=== PATIENT | female | born 1980 | race Caucasian/White ===

== ENCOUNTER 2017-04-22 14:34 | Emergency (ER) | payer OTHER ==
--- NOTE | 2017-04-22 15:04 | ER Document Report ---
ED Psych Disorder / Suicide - General Chief Complaint: Depression Stated Complaint: PSYCH PROBLEM Time Seen by Provider: 04/22/17 14:58 Notes: The patient is a 37-year-old female, past medical history anxiety, depression, benzos, presents with increased feelings of anxiety. She is approaching the one -year anniversary of her father's . Since she no longer has insurance, she is buying benzos off the street and she last used last night (0.5 mg Klonopin). She is having feelings of extreme anxiety, depression and hopelessness. She was at [facility], had outpatient labs done earlier today and was sent to [facility] for further evaluation. [facility] sent her to the ER for further evaluation. Patient denies any suicidal thoughts, alcohol use, homicidal thoughts, hallucinations, chest pain, shortness of breath, nausea, vomiting or back pain. TRAVEL OUTSIDE OF THE [place] IN LAST 30 DAYS: No - Related Data Allergies/Adverse Reactions: Penicillins Allergy (Severe, Verified 04/22/17 14:50) Facial swelling shellfish derived Allergy (Verified 04/22/17 14:51) Past Medical History - General Information source: Patient - Social History Smoking Status: Current Every Day Smoker Family History: Reviewed & Not Pertinent Patient has suicidal ideation: No Patient has homicidal ideation: No Neurological Medical History: Reports: Hx Migraine. Denies: Hx Seizures Renal/ Medical History: Reports: Hx Kidney Stones. Denies: Hx Peritoneal Dialysis Skin Medical History: Denies Hx MRSA Psychiatric Medical History: Reports: Hx Attention Deficit Hyperactivity Disorder, Hx Depression Past Surgical History: Reports: Hx Gynecologic Surgery - D&C, Hx Tubal Ligation. Denies: Hx Pacemaker - Immunizations Hx Diphtheria, Pertussis, Tetanus Vaccination: Yes Review of Systems - Review of Systems Notes: REVIEW OF SYSTEMS: CONSTITUTIONAL: -fevers, -chills EENT: -eye pain, -difficulty swallowing, -nasal congestion CARDIOVASCULAR:-chest pain, -syncope. RESPIRATORY: -cough, -SOB GASTROINTESTINAL: -abdominal pain, - nausea, -vomiting, -diarrhea GENITOURINARY: -dysuria, -hematuria MUSCULOSKELETAL: -back pain, -neck pain SKIN: -rash or skin lesions. HEMATOLOGIC: -easy bruising or bleeding. LYMPHATIC: -swollen, enlarged glands. NEUROLOGICAL: -altered mental status or loss of consciousness, -headache, - neurologic symptoms PSYCHIATRIC: +anxiety, +depression, +hopelessness ALL OTHER SYSTEMS REVIEWED AND NEGATIVE. Physical Exam - Vital signs Vitals: Temp Pulse Resp BP Pulse Ox 99.1 F 126 H 18 129/86 H 97 04/22/17 14:51 04/22/17 14:51 04/22/17 14:51 04/22/17 14:51 04/22/17 14:51 - Notes Notes: PHYSICAL EXAMINATION: GENERAL: Very anxious. Tearful. HEAD: Atraumatic, normocephalic. EYES: Pupils equal round and reactive to light, extraocular movements intact, sclera anicteric, conjunctiva are normal. ENT: nares patent, oropharynx clear without exudates. Moist mucous membranes. NECK: Normal range of motion, supple without lymphadenopathy LUNGS: Breath sounds clear to auscultation bilaterally and equal. No wheezes rales or rhonchi. HEART: Tachycardic, regular rhythm ABDOMEN: Soft, nontender, normoactive bowel sounds. No guarding, no rebound. No masses appreciated. EXTREMITIES: Normal range of motion, no pitting or edema. No cyanosis. NEUROLOGICAL: Cranial nerves grossly intact. Normal speech, normal gait. Normal sensory and motor exams. PSYCH: Anxious SKIN: Warm, Dry, normal turgor, no rashes or lesions noted. Course - Re-evaluation Re-evalutation: Patient very anxious in triage. Her last Klonopin use was last night. No suicidal thoughts, but patient wants to get voluntary help. She does not appear to be withdrawing at this time, since she says that she is not a chronic abuser of benzos. Patient medically cleared and will have mental health evaluate her for further evaluation and treatment. 04/22/17 16:45 Pt seen by Mental Health. Recommending Visteril for anxiety and have her f/u at [facility]. Pt is not suicidal. Tachycardia resolved after anxiety controlled. Will D/C home with strict return precautions. - Vital Signs Vital signs: Temp Pulse Resp BP Pulse Ox 98.5 F 109 H 18 145/87 H 100 04/22/17 16:44 04/22/17 16:44 04/22/17 16:44 04/22/17 16:44 04/22/17 16:44 - EKG Interpretation by [facility] EKG shows normal: Sinus rhythm, Dumas, Intervals, QRS Complexes, ST-T Waves Rate: Tachycardia Discharge - Discharge Clinical Impression: Anxiety Condition: Stable Disposition: HOME, SELF-CARE Additional Instructions: Anxiety The physician feels that some of your health problems are being caused by anxiety. Anxiety affects your health in many ways. Anxiety alone can cause palpitations, sweats, chest pains, abdominal pains, shortness of breath, and headaches. It contributes to ulcer disease, high blood pressure, irritable bowel syndrome, and has been shown to cause flare-ups of many other diseases. Anxiety is not a simple disorder to treat. If the anxiety is due to recent life stresses, you may simply need time to "work through" the changes. If the anxiety is due to an underlying unhappiness with yourself or due to psychiatric disturbance, professional help will be needed. Your physician can refer you for further help if needed. Anti-anxiety medication is occasionally given if the stress is acute or if you are having trouble sleeping. Chronic or frequent use of these medications is not a good idea because the body becomes reliant on it, preventing you from dealing with life's normal stresses. Depression Your evaluation reveals that you have mental depression. While symptoms may be vague, they often include disturbance of sleep, fatigue, loss of appetite , and general loss of interest in life. While depression may be a side effect of drugs, or a reaction to a major change in your life, many cases have no known cause. If depression is acute, and related to a major loss in your life, you can expect it to clear completely with time. If you have been depressed a long time , are prone to repeated bouts of depression or low mood, or have been thinking of suicide, get help. Depression can be treated with anti-depressant medication and counselling. Long-term depression will often take a few weeks to clear, even with appropriate medication. Follow-up care is important. Contact your physician, the hospital emergency center, crisis line, or your counsellor if you are losing control or having self-destructive thoughts. Follow-up with [facility] for your outpatient treatment. You have been provided a list of resources as well as a copy of your negative toxicology test. Prescriptions: Hydroxyzine Pamoate [Vistaril 25 mg Capsule] 25 mg PO DAILY #7 capsule Referrals: [facility] [Provider Group] - Follow up as needed
[2017-04-22] MEDS ORDERED: BUSPIRONE HCL 10 MG TABLET PO ONE (15:27)
[2017-04-22] MEDS ORDERED: NICOTINE 21 MG/24 HR PATCH.TD24 TD ONE (16:03)
[2017-04-22 16:10] LABS: URINE BARBITURATES SCREEN NEGATIVE; URINE METHADONE SCREEN NEGATIVE; URINE OPIATES LOW NEGATIVE; URINE PHENCYCLIDINE SCREEN NEGATIVE
[2017-04-22 16:52] VITALS: BP 145/87
--- NOTE | 2017-04-22 23:40 | EKG REPORT ---
SEVERITY:- BORDERLINE ECG - SINUS TACHYCARDIA INFERIOR Q WAVES, PROBABLY NORMAL VARIATION : Confirmed by: Ernesto Khoury 22-Apr-2017 23:39:22
== END 2017-04-22 16:47 | disposition home or self-care (01) ==
LOC: ER 14:34
DX: F32.9 Major depressive disorder, single episode, unspecified (principal); F41.9 Anxiety disorder, unspecified; F17.200 Nicotine dependence, unspecified, uncomplicated; Z87.442 Personal history of urinary calculi; Z98.51 Tubal ligation status; Z88.0 Allergy status to penicillin; Z91.013 Allergy to seafood
CPT/HCPCS: 80307; 93005; 93010; 99284

== ENCOUNTER → 2017-04-22 | Outpatient (CLI) | payer SELFPAY ==
[2017-04-22 14:28] LABS: ABSOLUTE EOSINOPHILS # (AUTO) 0.1 10^3/uL (0.0-0.6); ABSOLUTE LYMPHOCYTES (AUTO) 2.3 10^3/uL (0.5-4.7); ABSOLUTE MONOCYTES (AUTO) 0.4 10^3/uL (0.1-1.4); ABSOLUTE NEUT (AUTO) 4.7 10^3/uL (1.7-8.2); BASOPHILS % (AUTO) 0.4 % (0-2); EOSINOPHILS % (AUTO) 1.6 % (0-6); HEMATOCRIT 43.6 % (36.0-47.0); HEMOGLOBIN 14.8 g/dL (12.0-15.5); HGB HCT DIFFERENCE 0.8; LYMPHOCYTES % (AUTO) 30.7 % (13-45); MEAN CORPUSCULAR HEMOGLOBIN 33.3 pg (27.0-33.4); MEAN CORPUSCULAR HGB CONC 33.9 g/dL (32.0-36.0); MEAN CORPUSCULAR VOLUME 98 fl (80-97); MONOCYTES % (AUTO) 5.1 % (3-13); RED BLOOD COUNT 4.44 10^6/uL (3.72-5.28); RED CELL DISTRIBUTION WIDTH 13.8 % (11.5-14.0); SEGMENTED NEUTROPHILS % (AUTO) 62.2 % (42-78); WHITE BLOOD COUNT 7.5 10^3/uL (4.0-10.5)
[2017-04-22 14:33] LABS: APPEARANCE,URINE SLIGHTLY-CLOUDY; BILIRUBIN,URINE NEGATIVE (NEGATIVE); GLUCOSE, URINE NEGATIVE (NEGATIVE); KETONES,URINE NEGATIVE (NEGATIVE); LEUKOCYTE ESTERASE,URINE NEGATIVE (NEGATIVE); NITRITE,URINE NEGATIVE (NEGATIVE); PROTEIN,URINE NEGATIVE (NEGATIVE); URINE SPECIFIC GRAVITY 1.004; UROBILINOGEN,URINE NEGATIVE mg/dL (<2.0)
[2017-04-22 14:49] LABS: ALANINE AMINOTRANSFERASE 84 U/L (9-52); ALBUMIN 4.5 g/dL (3.5-5.0); ALKALINE PHOSPHATASE 72 U/L (38-126); ANION GAP 14 (5-19); ASPARTATE AMINO TRANSFERASE 52 U/L (14-36); BILIRUBIN,DIRECT 0.3 mg/dL (0.0-0.4); BILIRUBIN,TOTAL 0.4 mg/dL (0.2-1.3); BLOOD UREA NITROGEN 11 mg/dL (7-20); CALCIUM 9.9 mg/dL (8.4-10.2); CARBON DIOXIDE 25 mmol/L (22-30); CHLORIDE 102 mmol/L (98-107); CREATININE RESULT 0.76 mg/dL (0.52-1.25); GLUCOSE 93 mg/dL (75-110); POTASSIUM 4.4 mmol/L (3.6-5.0); SODIUM 140.9 mmol/L (137-145); TOTAL PROTEIN 8.2 g/dL (6.3-8.2)
[2017-04-22 15:09] LABS: FREE T3 3.65 pg/mL (2.77-5.27)
[2017-04-22 15:22] LABS: THYROID STIMULATING HORMONE 0.98 uIU/mL (0.47-4.68)
[2017-04-22 15:32] LABS: ADD HIVPANEL? NO; HIV (1 AND 2) ANTIBODY NEGATIVE (NEGATIVE)
[2017-04-24 05:40] LABS: HEPATITIS C VIRUS AB <0.1 s/co ratio (0.0-0.9); PROLACTIN 12.2 ng/mL (4.8-23.3)
== END ==
LOC: OD 13:31
PROVIDERS: ATTEND Obstetrics & Gynecology Gynecology
DX: F33.2 Major depressive disorder, recurrent severe without psychotic features (principal)
CPT/HCPCS: 36415; 80053; 81001; 83036; 84146; 84439; 84443; 84481; 85025; 86592; 86701; 86803; 86804; 87340

== ENCOUNTER 2017-12-30 10:28 | Observation (INO) | payer OTHER ==
--- NOTE | 2017-12-30 11:20 | ER Document Report ---
HPI - HPI Pain Level: 4 - REPRODUCTIVE Reproductive: DENIES: : Past Medical History - Social History Family History: Reviewed & Not Pertinent Neurological Medical History: Reports: Hx Migraine. Denies: Hx Seizures Renal/ Medical History: Reports: Hx Kidney Stones. Denies: Hx Peritoneal Dialysis Skin Medical History: Denies Hx MRSA Psychiatric Medical History: Reports: Hx Attention Deficit Hyperactivity Disorder, Hx Depression Past Surgical History: Reports: Hx Gynecologic Surgery - D&C, Hx Tubal Ligation. Denies: Hx Pacemaker - Immunizations Hx Diphtheria, Pertussis, Tetanus Vaccination: Yes Vertical Provider Document - INFECTION CONTROL TRAVEL OUTSIDE OF THE [place] IN LAST 30 DAYS: No - RESPIRATORY O2 Sat by Pulse Oximetry: 97 Course - Re-evaluation Re-evalutation: 12/30/17 12:57 Chest x-ray shows small right apical pneumothorax. - Vital Signs Vital signs: Temp Pulse Resp BP Pulse Ox 99.1 F 109 H 18 128/71 H 97 12/30/17 10:34 12/30/17 10:34 12/30/17 10:34 12/30/17 10:34 12/30/17 10:34 Discharge - Discharge Referrals: EDDA BELTRAN MD [Primary Care Provider] - Follow up as needed
[2017-12-30] MEDS ORDERED: IBUPROFEN 800 MG TABLET PO ONE (11:26)
[2017-12-30] MEDS ORDERED: OXYCODONE-ACETAMINOPHEN 5-325 MG TABLET PO ONE ×2 (11:26→15:35)
[2017-12-30] MEDS ORDERED: ONDANSETRON 4 MG TAB.RAPDIS PO ONE (11:26)
[2017-12-30] MEDS ORDERED: LIDOCAINE 1% INJ-PF (10 MG/ML) 30 ML SDV INJ ONE (11:28)
[2017-12-30] MEDS ORDERED: DIPH/PERTUSS(ACELL)/TETANUS VAC/PF 0.5 ML SYR (>=10YO) IM ONE (11:33)
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
[2017-12-30] MEDS ORDERED: ERTAPENEM SODIUM INJ 1 GM VIAL IV ONE (13:12)
[2017-12-30] MEDS ORDERED: NICOTINE 21 MG/24 HR PATCH.TD24 TD ONE (13:21)
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
[2017-12-30] MEDS ORDERED: CLINDAMYCIN 600 MG/D5W RTU 600 MG/50 ML RTUPB IV ONE (14:00)
[2017-12-30 14:06] LABS: ABSOLUTE EOSINOPHILS # (AUTO) 0.5 10^3/uL (0.0-0.6); ABSOLUTE LYMPHOCYTES (AUTO) 2.8 10^3/uL (0.5-4.7); ABSOLUTE MONOCYTES (AUTO) 0.5 10^3/uL (0.1-1.4); ABSOLUTE NEUT (AUTO) 6.5 10^3/uL (1.7-8.2); BASOPHILS % (AUTO) 0.4 % (0-2); EOSINOPHILS % (AUTO) 4.9 % (0-6); HEMATOCRIT 38.6 % (36.0-47.0); HEMOGLOBIN 13.2 g/dL (12.0-15.5); LYMPHOCYTES % (AUTO) 27.4 % (13-45); MEAN CORPUSCULAR HEMOGLOBIN 33.8 pg (27.0-33.4); MEAN CORPUSCULAR HGB CONC 34.2 g/dL (32.0-36.0); MEAN CORPUSCULAR VOLUME 99 fl (80-97); MONOCYTES % (AUTO) 4.9 % (3-13); PLATELET COUNT 256 10^3/uL (150-450); RED BLOOD COUNT 3.91 10^6/uL (3.72-5.28); RED CELL DISTRIBUTION WIDTH 13.7 % (11.5-14.0); SEGMENTED NEUTROPHILS % (AUTO) 62.4 % (42-78); TOTAL CELLS COUNTED % (AUTO) 100 %; WHITE BLOOD COUNT 10.4 10^3/uL (4.0-10.5)
[2017-12-30 14:08] LABS: ALANINE AMINOTRANSFERASE 27 U/L (9-52); ALBUMIN 4.5 g/dL (3.5-5.0); ALKALINE PHOSPHATASE 56 U/L (38-126); ANION GAP 12 (5-19); ASPARTATE AMINO TRANSFERASE 20 U/L (14-36); BILIRUBIN,DIRECT 0.2 mg/dL (0.0-0.4); BILIRUBIN,TOTAL 0.2 mg/dL (0.2-1.3); BLOOD UREA NITROGEN 9 mg/dL (7-20); CALCIUM 9.7 mg/dL (8.4-10.2); CARBON DIOXIDE 26 mmol/L (22-30); CHLORIDE 104 mmol/L (98-107); GLUCOSE 89 mg/dL (75-110); TOTAL PROTEIN 6.9 g/dL (6.3-8.2)
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
[2017-12-30] MEDS ORDERED: OXYCODONE HCL IR 5 MG TABLET PO PRN (16:55)
[2017-12-30] MEDS ORDERED: HYDROMORPHONE HCL INJ/PF 2 MG/ML AMPULE IV PRN (17:07)
[2017-12-30] MEDS ORDERED: ALPRAZOLAM 0.5 MG TABLET PO PRN (18:40)
[2017-12-30] MEDS: OXYCODONE-ACETAMINOPHEN 5-325 MG TABLET PO PRN (20:14)
[2017-12-31] MEDS: FENTANYL CITRATE INJ/PF 100 MCG/2 ML AMPUL IV PRN ×2 (00:01→04:03)
[2017-12-31 07:16] LABS: ABSOLUTE EOSINOPHILS # (AUTO) 0.4 10^3/uL (0.0-0.6); ABSOLUTE LYMPHOCYTES (AUTO) 2.2 10^3/uL (0.5-4.7); ABSOLUTE MONOCYTES (AUTO) 0.4 10^3/uL (0.1-1.4); ABSOLUTE NEUT (AUTO) 2.6 10^3/uL (1.7-8.2); BASOPHILS % (AUTO) 0.5 % (0-2); EOSINOPHILS % (AUTO) 7.4 % (0-6); HEMATOCRIT 34.5 % (36.0-47.0); HEMOGLOBIN 11.9 g/dL (12.0-15.5); LYMPHOCYTES % (AUTO) 39.4 % (13-45); MEAN CORPUSCULAR HGB CONC 34.4 g/dL (32.0-36.0); MEAN CORPUSCULAR VOLUME 99 fl (80-97); MONOCYTES % (AUTO) 7.7 % (3-13); PLATELET COUNT 210 10^3/uL (150-450); RED BLOOD COUNT 3.49 10^6/uL (3.72-5.28); RED CELL DISTRIBUTION WIDTH 13.5 % (11.5-14.0); TOTAL CELLS COUNTED % (AUTO) 100 %; WHITE BLOOD COUNT 5.7 10^3/uL (4.0-10.5)
[2017-12-31] MEDS: OXYCODONE-ACETAMINOPHEN 5-325 MG TABLET PO PRN (08:37)
--- NOTE | 2017-12-31 08:46 | RADIOLOGY REPORT (SQ) ---
EXAM DESCRIPTION: CHEST SINGLE VIEW COMPLETED DATE/TIME: 12/31/2017 8:33 am REASON FOR STUDY: pneumothorax COMPARISON: 12/30/2017. FINDINGS: Single-view chest PA image timed 0841 hours. Diminished aeration in left lower lobe, patchy airspace disease has developed. No pneumothorax appre ciated. Mild chronic subcutaneous emphysema in the right chest wall. IMPRESSION: 1. Right pneumothorax looks resolved. Persistent soft tissue gas. 2. Diminished aerati on left base, worsening volume loss or infiltrate. TECHNICAL DOCUMENTATION: JOB ID: [id number] Reading location - IP/workstation name: [email or web address]
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
[2017-12-31 11:34] VITALS: BP 137/73
[2017-12-31] MEDS ORDERED: IBUPROFEN 800 MG TABLET ONE (11:48)
[2017-12-31] MEDS ORDERED: CLINDAMYCIN 600 MG/D5W RTU 600 MG/50 ML RTUPB IV SCH (12:00)
[2017-12-31] MEDS ORDERED: CLINDAMYCIN PHOSPHATE 600 MG in DEXTROSE 5%-WATER 100 ML IV SCH (12:00)
[2017-12-31] MEDS ORDERED: IBUPROFEN 400 MG TABLET PO ONE (12:00)
== END 2017-12-31 12:11 | disposition home or self-care (01) ==
LOC: ER 10:28 → EEVIPCON 13:38 → EH 13:38 → 5 17:09
PROVIDERS: ADMIT Emergency Medicine; ATTEND Emergency Medicine
PROC: 3E0234Z Introduction of Serum, Toxoid and Vaccine into Muscle, Percutaneous Approach (ICD-10-PCS; principal; 2017-12-30)
DX: S21.4 Open wound of back wall of thorax with penetration into thoracic cavity (principal); S27.0XXA Traumatic pneumothorax, initial encounter; T79.7XXA Traumatic subcutaneous emphysema, initial encounter; X99.1XXA Assault by knife, initial encounter; F17.200 Nicotine dependence, unspecified, uncomplicated; F12.10 Cannabis abuse, uncomplicated; F41.9 Anxiety disorder, unspecified; F11.20 Opioid dependence, uncomplicated; Z88.0 Allergy status to penicillin
CPT/HCPCS: 99284; 90471; 96365; 36415; 85025 ×2; 80053; 71046; 71045; 90715; G0378 ×3; S0119; J3010; J3490; J1170

== ENCOUNTER → 2018-01-05 | Outpatient (CLI) | payer OTHER ==
--- NOTE | 2018-01-05 14:30 | RADIOLOGY REPORT (SQ) ---
EXAM DESCRIPTION: CHEST PA/LAT COMPLETED DATE/TIME: 01/05/2018 2:15 pm REASON FOR STUDY: J93.9 PNEUMOTHORAX, UNSPECIFIED COMPARISON: 12/31/2017 and 12/30/2017. EXAM PARAMETERS: NUMBER OF VIEWS: two views TECHNIQUE: Digital Frontal and Lateral radiographic views of the chest acquired. RADIATION DOSE: NA LIMITATIONS: none FINDINGS: LUNGS AND PLEURA: No opacities, masses or pneumothorax. No pleural effusion. MEDIASTINUM AND HILAR STRUCTURES: No masses or contour abnormalities. HEART AND VASCULAR STRUCTURES: Heart normal size. No evidence for failure. BONES: No acute findings. HARDWARE: None in the chest. OTHER: No other significant finding. IMPRESSION: NO SIGNIFICANT RADIOGRAPHIC FINDING IN THE CHEST. PREVIOUSLY SEEN SMALL RIGHT APICAL PN EUMOTHORAX AND SUBCUTANEOUS EMPHYSEMA ON THE RIGHT SIDE HAVE RESOLVED. TECHNICAL DOCUMENTATION: JOB ID: [id number] [employer]- All Rights Reserved Reading location - IP/workstation name: [email or web address]
== END ==
LOC: RAD 13:57
PROVIDERS: ATTEND Physician Assistant
DX: J93.9 Pneumothorax, unspecified (principal)
CPT/HCPCS: 71046

== ENCOUNTER 2018-01-10 19:45 | Emergency (ER) | payer OTHER ==
[2018-01-10] MEDS ORDERED: LORAZEPAM 1 MG TABLET PO ONE (20:07)
[2018-01-10] MEDS ORDERED: ONDANSETRON HCL INJ/PF 4 MG/2 ML SDV IV ONE (20:11)
[2018-01-10] MEDS ORDERED: DIAZEPAM INJ 10 MG/2 ML DISP.SYRIN IV ONE ×2 (20:11→21:39)
[2018-01-10] MEDS ORDERED: NORMAL SALINE 1000 ML 1,000 ML IV ONE (20:11)
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
--- NOTE | 2018-01-10 20:24 | RADIOLOGY REPORT (SQ) ---
EXAM DESCRIPTION: CHEST PA/LAT COMPLETED DATE/TIME: 01/10/2018 8:17 pm REASON FOR STUDY: cp, deon COMPARISON: Two-view chest 01/05/2018 EXAM PARAMETERS: NUMBER OF VIEWS: two views TECHNIQUE: Digital Frontal and Lateral radiographic views of the chest acquired. RADIATION DOSE: NA LIMITATIONS: none FINDINGS: LUNGS AND PLEURA: No opacities, masses or pneumothorax. No pleural effusion. MEDIASTINUM AND HILAR STRUCTURES: No masses or contour abnormalities. HEART AND VASCULAR STRUCTURES: Heart normal size. No evidence for failure. BONES: No acute findings. HARDWARE: None in the chest. OTHER: No other significant finding. IMPRESSION: NO SIGNIFICANT RADIOGRAPHIC FINDING IN THE CHEST. TECHNICAL DOCUMENTATION: JOB ID: [id number] [employer]- All Rights Reserved Reading location - IP/workstation name: [email or web address]
[2018-01-10 20:59] LABS: ABSOLUTE BASOPHILS # (AUTO) 0.1 10^3/uL (0.0-0.2); ABSOLUTE EOSINOPHILS # (AUTO) 0.5 10^3/uL (0.0-0.6); ABSOLUTE LYMPHOCYTES (AUTO) 1.9 10^3/uL (0.5-4.7); ABSOLUTE MONOCYTES (AUTO) 0.7 10^3/uL (0.1-1.4); BASOPHILS % (AUTO) 0.6 % (0-2); EOSINOPHILS % (AUTO) 4.6 % (0-6); HEMATOCRIT 39.8 % (36.0-47.0); HEMOGLOBIN 13.9 g/dL (12.0-15.5); LYMPHOCYTES % (AUTO) 18.6 % (13-45); MEAN CORPUSCULAR HEMOGLOBIN 33.9 pg (27.0-33.4); MEAN CORPUSCULAR VOLUME 97 fl (80-97); MONOCYTES % (AUTO) 7.1 % (3-13); PLATELET COUNT 367 10^3/uL (150-450); RED CELL DISTRIBUTION WIDTH 13.9 % (11.5-14.0); SEGMENTED NEUTROPHILS % (AUTO) 69.1 % (42-78); TOTAL CELLS COUNTED % (AUTO) 100 %; WHITE BLOOD COUNT 10.1 10^3/uL (4.0-10.5)
[2018-01-10 21:12] LABS: ANION GAP 17 (5-19); BLOOD UREA NITROGEN 17 mg/dL (7-20); CALCIUM 9.8 mg/dL (8.4-10.2); CARBON DIOXIDE 25 mmol/L (22-30); CHLORIDE 97 mmol/L (98-107); GLUCOSE 105 mg/dL (75-110); POTASSIUM 3.2 mmol/L (3.6-5.0); SODIUM 138.9 mmol/L (137-145)
[2018-01-10] MEDS ORDERED: ONDANSETRON ODT 4 MG TAB (6 TAB/ER DISP) PO PRN (21:35)
[2018-01-10] MEDS ORDERED: HYDROXYZINE PAMOATE 25 MG CAPSULE (4 CAP/ER DISP) PO PRN (21:35)
--- NOTE | 2018-01-10 23:49 | EKG REPORT ---
SEVERITY:- BORDERLINE ECG - SINUS RHYTHM BORDERLINE PROLONGED QT INTERVAL : Confirmed by: Jeb Phillips MD 10-Jan-2018 23:49:01
[2018-01-10 23:50] VITALS: BP 128/70
== END 2018-01-10 23:50 | disposition home or self-care (01) ==
LOC: ER 19:45
DX: F41.9 Anxiety disorder, unspecified (principal); R06.02 Shortness of breath; R06.00 Dyspnea, unspecified; F17.200 Nicotine dependence, unspecified, uncomplicated; Z87.442 Personal history of urinary calculi; Z86.14 Personal history of Methicillin resistant Staphylococcus aureus infection; Z98.51 Tubal ligation status; Z88.0 Allergy status to penicillin; Z91.013 Allergy to seafood
CPT/HCPCS: 93005; 99284; 36415; 85025; 80048; 71046; 93010; J3360; J3490; J2405; J7030

== ENCOUNTER 2019-04-03 09:00 | Emergency (ER) | payer OTHER ==
--- NOTE | 2019-04-03 10:58 | ER Document Report ---
ED Oral Problem - General Chief Complaint: Mouth Problem Stated Complaint: MOUTH PAIN Time Seen by Provider: 04/03/19 10:46 Primary Care Provider: Alejandro [facility] [Provider Group] - Follow up as needed Notes: Patient is a 37-year-old female who presents to the emergency department with a chief complaint of left dental pain. Patient states that about 5 months ago she had her bottom left tooth broken which has been infected multiple times. She states that usually she deals with the pain and minimal swelling at home. Patient states yesterday she started to have tooth pain around that area and wok e up this morning with a large amount of swelling to the left lower face. Patient denies fever. Patient denies difficulty swallowing or neck pain. Patient states the pain is primarily located where the tooth was broken off. Patient denies drainage or foul odor from the mouth. TRAVEL OUTSIDE OF THE [place] IN LAST 30 DAYS: No - Related Data Allergies/Adverse Reactions: Penicillins Allergy (Severe, Verified 04/03/19 09:01) Facial swelling shellfish derived Allergy (Verified 04/03/19 09:01) Past Medical History - General Information source: Patient - Social History Smoking Status: Current Every Day Smoker Frequency of alcohol use: None Drug Abuse: Marijuana Family History: Reviewed & Not Pertinent Patient has suicidal ideation: No Patient has homicidal ideation: No - Past Medical History Cardiac Medical History: Reports: None Pulmonary Medical History: Reports: None EENT Medical History: Reports: None Neurological Medical History: Reports: Hx Migraine. Denies: Hx Seizures Endocrine Medical History: Reports: None Renal/ Medical History: Reports: Hx Kidney Stones. Denies: Hx Peritoneal Dialysis Malignancy Medical History: Reports: None GI Medical History: Reports: None Musculoskeletal Medical History: Reports None Skin Medical History: Reports None, Denies Hx MRSA Psychiatric Medical History: Reports: Hx Attention Deficit Hyperactivity Disorder, Hx Depression Traumatic Medical History: Reports: None Infectious Medical History: Reports: None Surgical Hx: Negative Past Surgical History: Reports: Hx Gynecologic Surgery - D&C, Hx Tubal Ligation. Denies: Hx Pacemaker - Immunizations Hx Diphtheria, Pertussis, Tetanus Vaccination: Yes Review of Systems - Review of Systems Constitutional: No symptoms reported EENT: See HPI Cardiovascular: No symptoms reported Respiratory: No symptoms reported Gastrointestinal: No symptoms reported Genitourinary: No symptoms reported Female Genitourinary: No symptoms reported Musculoskeletal: No symptoms reported Skin: No symptoms reported Hematologic/Lymphatic: No symptoms reported Neurological/Psychological: No symptoms reported Physical Exam - Vital signs Vitals: Temp Pulse Resp BP Pulse Ox 98.7 F 106 H 16 123/70 98 04/03/19 09:09 04/03/19 09:09 04/03/19 09:09 04/03/19 09:09 04/03/19 09:09 Interpretation: Normal - Notes Notes: GENERAL: Well-appearing, well-nourished and in no acute distress. HEAD: Atraumatic, normocephalic. EYES: Pupils equal round and reactive to light, extraocular movements intact, sclera anicteric, conjunctiva are normal. ENT: Nares patent, oropharynx clear without exudates. Moist mucous membranes. Patient has very poor indentation with multiple broken teeth. Patient has swelling to left lower face, no palpable abscess, airway is patent, no cellulitis. NECK: Normal range of motion, supple without lymphadenopathy or JVD. LUNGS: Breath sounds clear to auscultation bilaterally and equal. No wheezes rales or rhonchi. HEART: Regular rate and rhythm without murmurs, rubs or gallops. ABDOMEN: Soft, nontender, normoactive bowel sounds. No guarding, no rebound. No masses appreciated. BACK: No cervical, thoracic, lumbar midline tenderness. No saddle anesthesia, normal distal neurovascular exam. GENITOURINARY: Deferred. EXTREMITIES: Normal range of motion, no pitting or edema. No clubbing or cyanosis. NEUROLOGICAL: Cranial nerves II through XII grossly intact. Normal speech, normal gait. PSYCH: Normal mood, normal affect. SKIN: Warm, Dry, normal turgor, no rashes or lesions noted. Course - Re-evaluation Re-evalutation: 04/03/19 Assessment patient is resting comfortably on stretcher. Patient does have left lower facial swelling. Patient is able to move her jaw and swallow without difficulty. Patient states that she has had this happen multiple times due to her broken tooth that occurred months ago. Patient states she has done well with clindamycin in the past. Informed patient the important to return if not feeling better or if the swelling gets worse. We will give her a dose of clindamycin as well as pain medication. Patient return if symptoms worsen. - Vital Signs Vital signs: Temp Pulse Resp BP Pulse Ox 98.7 F 92 16 127/75 H 98 04/03/19 11:50 04/03/19 11:50 04/03/19 11:50 04/03/19 11:50 04/03/19 11:50 Discharge - Discharge Clinical Impression: Dental infection, Facial swelling Condition: Stable Disposition: HOME, SELF-CARE Additional Instructions: Today you were seen for dental pain and left lower facial swelling. We have given your first dose of antibiotic as well as pain medication in the emergency department. Please take your antibiotic for the full 10 days. Please return to the emergency department if your symptoms have not improved or if the facial swelling gets worse, fever, difficulty swallowing or any other concerning signs or symptoms. I referred you to the [facility], call them on Friday to make a appointment. *You have been evaluated for dental pain *Take medications as prescribed *Follow up with dentist *Return to ED for worsening condition, changes, needs Dental Infection or Abscess You have an infection, perhaps an abscess (pus formation) of the gum around one of your teeth, which is probably decayed. If there is an abscess, it may drain on its own or it may need to be opened or lanced. Severe swelling or drainage around a tooth usually means a deep dental abscess which usually requires evaluation and treatment by a dentist or oral surgeon. Antibiotics may be prescribed while awaiting dental treatment. If you develop high fever with chills, worsening pain, or increasing swelling in the area, see a dentist or oral surgeon immediately or return to the Emergency Department immediately. Prescriptions: Clindamycin HCl [Cleocin 150 mg Capsule] 450 mg PO TID 10 Days #60 capsule Oxycodone HCl/Acetaminophen [Percocet 5-325 mg Tablet] 1 tab PO Q4H PRN #15 tablet PRN Reason: Referrals: [facility] [Provider Group] - Follow up as needed
[2019-04-03] MEDS ORDERED: IBUPROFEN 600 MG TABLET PO ONE (11:08)
[2019-04-03] MEDS ORDERED: OXYCODONE-ACETAMINOPHEN 5-325 MG TABLET PO ONE (11:09)
[2019-04-03] MEDS ORDERED: CLINDAMYCIN HCL 150 MG CAPSULE PO ONE (11:09)
[2019-04-03 12:09] VITALS: BP 127/75
== END 2019-04-03 12:02 | disposition home or self-care (01) ==
LOC: ER 09:00 → EEVIPCON 09:00 → ER 12:02
DX: K04.7 Periapical abscess without sinus (principal); F17.200 Nicotine dependence, unspecified, uncomplicated; Z88.0 Allergy status to penicillin; Z91.013 Allergy to seafood; Z98.51 Tubal ligation status
CPT/HCPCS: 99282